=== PATIENT | female | born 1975 | race Caucasian/White ===

== ENCOUNTER 2016-05-16 09:04 | Emergency (ER) | payer SELFPAY ==
[~2016-05-16] VITALS: Ht 157.5 cm; Wt 78.9 kg
[~2016-05-16 09:04] MED LIST: CLON1TAB3 PO; LAMO200T18 PO; LOSA50TA6 PO; QUET300T13 PO
[2016-05-16 09:08] VITALS: Ht 157.5 cm; Wt 78.9 kg
[2016-05-16] MEDS ORDERED: IBUP-1542 PO (10:28)
[2016-05-16] MEDS ORDERED: IBUPROFEN 600 MG TAB PO ONE (10:30)
--- NOTE | 2016-05-16 10:39 | ERD ---
ER Documentation Chief Complaint Date/Time DATE: 05/16/16 TIME: 10:32 Chief Complaint right arm numbness x 2 week, flu like symptoms HPI 40-year-old female complaining of right arm numbness. Patient is that the numbness started on her middle and ring finger of the right hand about 3 weeks ago, and there is spread to the most of the right hand. 3 days ago she started noticing her whole arm feels numb. She also feels heaviness of her right shoulder and the right anterior chest. 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 Denies trauma. Denies fever or chills. ROS All systems reviewed and are negative except as per history of present illness. Medications Home Meds Active Scripts Ibuprofen* (Motrin*) 600 Mg Tab, 600 MG PO Q6H Y for PAIN AND OR ELEVATED TEMP, #30 TAB Prov:KRYSTEN DONOVAN. CRUDE TESTER 05/16/16 Clonazepam* (Clonazepam*) 1 Mg Tablet, 1 MG PO DAILY Y for ANXIETY, #4 TAB Prov:BASIL KAUFMAN PA-C 08/03/15 Reported Medications Clonazepam* (Clonazepam*) 1 Mg Tablet, 1 MG PO DAILY Y for ANXIETY, TAB 05/31/15 Losartan Potassium* (Losartan Potassium*) 50 Mg Tablet, 50 MG PO DAILY, TAB 16 Quetiapine Fumarate* (Seroquel*) 300 Mg Tablet, 300 MG PO DAILY, TAB 05/31/15 Lamotrigine* (Lamictal*) 200 Mg Tablet, 200 MG PO DAILY, TAB 05/31/15 Allergies Allergies: Coded Allergies: No Known Drug Allergies (Verified Allergy, Unknown, 08/03/15) PMhx/Soc History of Surgery: No Anesthesia Reaction: No Hx Neurological Disorder: No Hx Respiratory Disorders: No Hx Cardiac Disorders: No Hx Psychiatric Problems: Yes (BIPOLAR ) Hx Miscellaneous Medical Probl: Yes (ANXIETY ) Hx Alcohol Use: No Hx Substance Use: No Hx Tobacco Use: No Smoking Status: Former smoker Physical Exam Vitals Vital Signs Date Time Temp Pulse Resp B/P Pulse Ox O2 Delivery O2 Flow Rate FiO2 05/16/16 09:08 98.1 90 18 154/91 99 Physical Exam General impression: Well-developed, well-nourished. Alert, oriented, in no acute distress Head: Normocephalic, atraumatic. Eyes: PERRL, EOM normal. Conjunctiva not injected. Respiration: Normal respiratory effort. Lungs clear to auscultate bilaterally. No wheezes, rales or rhonchi. Cardiovascular: Regular rate and rhythm. No murmurs or extra heart sounds. Extremities: Right hand appears to be slightly swollen than the left. Normal range of motion of the right shoulder, elbow, and wrist. Normal range of motion of the right hand. Normal and equal sensation of the bilateral upper extremities. Positive Tinel's and Phalen's signs on the right. No tenderness of the right shoulder and chest. Neuro: Mental status normal, speech normal. 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 Skin: Normal turgor. No rash or lesions. Psych: Normal mood and affect. Results 24 hrs Current Medications Medications (Trade) Dose Ordered Sig/Jacques Route PRN Reason Start Time Stop Time Status Last Admin Dose Admin Ibuprofen (Motrin) 600 mg ONCE ONCE PO 05/16/16 10:30 05/16/16 10:31 DC 05/16/16 10:27 Procedures/MDM Well-appearing 40-year-old female presented to ED was right hand numbness. Her exam findings are consistent with carpal tunnel syndrome on the right. Patient was given a Velcro wrist splint. Patient was noted to be comfortable and neurovascularly intact both before and after the immobilization. Ibuprofen also given to the patient in the ED for pain. Low suspicion for fractures, dislocations, tendon or ligament rupture, or septic joint. Patient is advised to follow-up with her PCP for orthopedic referral. I also educated patient on ergonomic measures to prevent further repetitive stress injury. Patient appears well, stable for discharge and outpatient management. Medical decision making shared with patient and family. Education provided to patient and family. Patient and family expressed understanding of the plan. Medications on discharge: Ibuprofen. Follow-up: Primary care provider in 2-3 days or return to ED if worse. Addendum: Addendum: I was informed by RN that patient eloped after receiving the splint, before receiving discharge instructions and prescription. Departure Diagnosis: Primary Impression: Carpal tunnel syndrome on right Condition: Good Patient Instructions: What Is Carpal Tunnel Syndrome (CTS)?, Carpal Tunnel Syndrome Prevention Tips Referrals: COMMUNITY CLINICS YOU HAVE RECEIVED A MEDICAL SCREENING EXAM AND THE RESULTS INDICATE THAT YOU DO NOT HAVE A CONDITION THAT REQUIRES URGENT TREATMENT IN THE EMERGENCY DEPARTMENT. FURTHER EVALUATION AND TREATMENT OF YOUR CONDITION CAN WAIT UNTIL YOU ARE SEEN IN YOUR DOCTORS OFFICE WITHIN THE NEXT 1-2 DAYS. IT IS YOUR RESPONSIBILITY TO MAKE AN APPOINTMENT FOR FOLOW-UP CARE. IF YOU HAVE A PRIMARY DOCTOR --you should call your primary doctor and schedule an appointment IF YOU DO NOT HAVE A PRIMARY DOCTOR YOU CAN CALL OUR PHYSICIAN REFERRAL HOTLINE AT IF YOU CAN NOT AFFORD TO SEE A PHYSICIAN YOU CAN CHOSE FROM THE FOLLOWING [facility] CL[facility]ICS [facility] [address] [facility]. [facility] [address] [facility] [facility] [address] [facility] [facility] [address] [facility]. [facility] [address] [facility]. [facility]. [address] Additional Instructions: Call your primary care doctor TOMORROW for an appointment during the next 1 WEEK.Tell the escrow secretary that you were referred from this facility.See the doctor sooner or return here if your condition worsens before your appointment time. KRYSTEN DONOVAN NP May 16, 2016 10:39
== END 2016-05-16 10:53 | disposition left against medical advice (07) ==
LOC: FTE 09:04
DX: G56.01 Carpal tunnel syndrome, right upper limb (principal); Z87.891 Personal history of nicotine dependence